=== PATIENT | female | born 1970 | race Caucasian/White ===

== ENCOUNTER 2020-01-03 11:44 | Emergency (ER) | payer MEDICAID, OTHER ==
[~2020-01-03] VITALS: Ht 160 cm; Wt 93.4 kg
[2020-01-03] MEDS ORDERED: KETOROLAC TROMETHAMINE 15 MG/ML VIAL ONE (12:09)
--- NOTE | 2020-01-03 12:09 | NUR ---
PT REC'D TO ER VIA EMS C/O FELL WHILE WALKING IN THE STREET PAIN RT LEG HANDS SLIGHT SBRASIONS CLEANED IV STARTED 20G LABS SENT TO LAB . MEDS GIVEN PER MD ORDER
[2020-01-03 12:19] LABS: BASOPHILS % (AUTO) 0.7 % (0.0-2.0); HEMATOCRIT 41 % (33-45); HEMOGLOBIN 13.6 g/dL (11.5-14.8); LYMPHOCYTES # (AUTO) 1.9 /CMM (0.8-4.8); LYMPHOCYTES % (AUTO) 29.2 % (20.0-44.0); MEAN CORPUSCULAR HGB CONC 33 g/dl (31.0-36.0); MEAN CORPUSCULAR VOLUME 87 fL (82-100); MONOCYTES # (AUTO) 0.4 /CMM (0.1-1.30); MONOCYTES % (AUTO) 5.9 % (2.0-12.0); NEUTROPHILS # (AUTO) 4.1 /CMM (1.8-8.9); NEUTROPHILS % (AUTO) 62.2 % (43.0-81.0); PLATELET COUNT (AUTO) 177 /CMM (150-450); RED BLOOD CELL COUNT(AUTO) 4.68 MIL/uL (4.0-5.2); WHITE BLOOD COUNT (AUTO) 6.5 K/uL (4.3-11.0)
[2020-01-03 12:26] LABS: CALCIUM, SERUM 8.9 mg/dL (8.5-10.1); CARBON DIOXIDE 28 mmol/L (21-32); CHLORIDE 105 mmol/L (98-107); CREATININE 0.7 mg/dL (0.6-1.3); GLUCOSE 91 mg/dL (74-106); POTASSIUM 3.8 mmol/L (3.5-5.1); SODIUM SERUM 140 mmol/L (136-145); UREA NITROGEN, BLOOD 16 mg/dL (7-18)
[2020-01-03] MEDS ORDERED: KETOROLAC TROMETHAMINE INJ 30 MG/ML VIAL IV ONE (12:30)
[2020-01-03] MEDS ORDERED: IV NS 0.9% 1,000 ML BAG IV ONE (12:30)
[2020-01-03 12:32] LABS: ALANINE AMINOTRANSFERASE 45 U/L (12-78); ALBUMIN 3.2 g/dL (3.4-5.0); ALKALINE PHOSPHATASE 65 U/L (46-116); ASPARTATE AMINOTRANSFERASE 25 U/L (15-37); BILIRUBIN,DIRECT 0.1 mg/dL (0.0-0.2); BILIRUBIN,TOTAL 0.3 mg/dL (0.2-1.0); TOTAL PROTEIN, SERUM 6.8 g/dL (6.4-8.2)
--- NOTE | 2020-01-03 13:04 | NUR ---
Patient discharged to home in stable condition. Written and verbal after care instructions given. Patient verbalizes understanding of instruction.
[2020-01-03 13:05] VITALS: BP 118/72
== END 2020-01-03 13:05 | disposition home or self-care (01) ==
LOC: ER 11:49
DX: S60.512A Abrasion of left hand, initial encounter (principal); S60.511A Abrasion of right hand, initial encounter; M79.604 Pain in right leg; Z90.89 Acquired absence of other organs; W01.0XXA Fall on same level from slipping, tripping and stumbling without subsequent striking against object, initial encounter; Y93.89 Activity, other specified; Y92.89 Other specified places as the place of occurrence of the external cause; Y99.8 Other external cause status
CPT/HCPCS: 36415; 73502; 80048; 80076; 84484; 85025; 93005; 96374; 99285; J1885; J7030

== ENCOUNTER 2020-02-19 19:00 | Emergency (ER) | payer OTHER ==
[~2020-02-19] VITALS: Ht 165.1 cm; Wt 86.2 kg
[2020-02-19 19:11] VITALS: BP 135/79
--- NOTE | 2020-02-19 20:09 | NUR ---
COVID TEST SENT TO LAB
--- NOTE | 2020-02-19 20:12 | NUR ---
Patient discharged to home in stable condition. Written and verbal after care instructions given. Patient verbalizes understanding of instruction. Pt ambulatory with a steady gait
== END 2020-02-19 20:13 | disposition home or self-care (01) ==
LOC: ER 19:04
DX: U07.1 COVID-19 (principal); R05 Cough; M79.10 Myalgia, unspecified site
CPT/HCPCS: 99283; U0003

== ENCOUNTER 2020-02-25 23:07 | Emergency (ER) | payer OTHER ==
[~2020-02-25] VITALS: Ht 165.1 cm; Wt 93.0 kg
--- NOTE | 2020-02-25 23:37 | NUR ---
BIBS TO ER BED 5. AAOX4. NOT IN RESP DISTRESS BUT TACHYPNEIC. O2 SAT 96 ON RA. AMBULATORY. CAME IN FOR FEVER X 1 WEEK AND COUGH X 2 DAYS. PT WAS HERE ON 02/19/20 AND WAS TESTED FOR COVID WHICH TURNED OUT POSITIVE ON 02/23/20. ORAL TEMP NOTED @ 99.5. PT REPORTS TAKING TYLENOL BUT CANT REMEMBER THE TIME. PT IS PLACED ON ISOLATION. WAS AT BEDSIDE FOR EVAL. ORDERS RECEIVED NOTED AND CARRIED OUT. IV LINE OBTAINED ON THE R AC 18G. BLOOD DRAWN AND SENT TO LAB.
[2020-02-25] MEDS ORDERED: IBUPROFEN 400 MG TABLET ONE ×2 (23:39→23:41)
[2020-02-25 23:44] LABS: APPEARANCE,URINE Clear (CLEAR); BILIRUBIN,URINE Negative (NEGATIVE); BLOOD, URINE Negative Ery/uL (NEGATIVE); COLOR,URINE Yellow (YELLOW); KETONES,URINE Negative (NEGATIVE); LEUKOCYTE ESTERASE ,URINE Negative (NEGATIVE); NITRITE, URINE Negative (NEGATIVE); PROTEIN,URINE Negative (NEGATIVE); UGLUCOSE Negative (NEGATIVE); UROBILINOGEN,URINE 0.2 EU/dL (0.2)
[2020-02-25 23:47] LABS: BASOPHILS % (AUTO) 0.1 % (0.0-2.0); EOSINOPHILS % (AUTO) 0.1 % (0.0-6.0); HEMATOCRIT 43 % (33-45); HEMOGLOBIN 14.4 g/dL (11.5-14.8); LYMPHOCYTES # (AUTO) 1.2 /CMM (0.8-4.8); LYMPHOCYTES % (AUTO) 25.5 % (20.0-44.0); MEAN CORPUSCULAR HGB CONC 33 g/dl (31.0-36.0); MEAN CORPUSCULAR VOLUME 87 fL (82-100); MONOCYTES # (AUTO) 0.3 /CMM (0.1-1.30); MONOCYTES % (AUTO) 7.5 % (2.0-12.0); NEUTROPHILS % (AUTO) 66.8 % (43.0-81.0); PLATELET COUNT (AUTO) 159 /CMM (150-450); RED BLOOD CELL COUNT(AUTO) 4.97 MIL/uL (4.0-5.2); WHITE BLOOD COUNT (AUTO) 4.5 K/uL (4.3-11.0)
[2020-02-26] LABS: CALCIUM, SERUM 8.5 mg/dL (8.5-10.1); CREATININE 0.7 mg/dL (0.6-1.3); POTASSIUM 3.8 mmol/L (3.5-5.1)
[2020-02-26] MEDS ORDERED: IBUPROFEN 400 MG TABLET PO ONE
[2020-02-26] MEDS ORDERED: IV NS 0.9% 1,000 ML BAG IV ONE
[2020-02-26 00:13] LABS: ALBUMIN 3.5 g/dL (3.4-5.0); BILIRUBIN,TOTAL 0.3 mg/dL (0.2-1.0); TOTAL PROTEIN, SERUM 7.8 g/dL (6.4-8.2)
[2020-02-26] MEDS ORDERED: AZITHROMYCIN 250 MG TABLET ONE (00:59)
[2020-02-26] MEDS ORDERED: AZITHROMYCIN 250 MG TABLET PO ONE (01:00)
--- NOTE | 2020-02-26 01:17 | NUR ---
Patient discharged to home in stable condition. Written and verbal after care instructions given. Patient verbalizes understanding of instruction and RX. IV removed. Catheter intact and site benign. Pressure and 4x4 applied to site. No bleeding noted. Picked up by son. MANUEL.
[2020-02-26 01:29] VITALS: BP 112/72
== END 2020-02-26 01:30 | disposition home or self-care (01) ==
LOC: ER 23:07
DX: U07.1 COVID-19 (principal); J12.89 Other viral pneumonia; R94.5 Abnormal results of liver function studies
CPT/HCPCS: 36415; 71045-TC; 80053-TC; 81000-TC; 83605-TC; 85025-TC

== ENCOUNTER 2020-05-04 20:29 | Emergency (ER) | payer OTHER ==
[~2020-05-04] VITALS: Ht 165.1 cm; Wt 93.0 kg
[2020-05-04 20:30] VITALS: BP 127/68
== END 2020-05-04 21:16 | disposition home or self-care (01) ==
LOC: ER 20:32
DX: B02.9 Zoster without complications (principal); Z90.89 Acquired absence of other organs

== ENCOUNTER 2020-07-17 20:12 | Emergency (ER) | payer OTHER ==
[~2020-07-17] VITALS: Ht 165.1 cm; Wt 88.9 kg
--- NOTE | 2020-07-17 20:31 | NUR ---
PATIENT CAME TO ER BED 9 C/O MID EPIGASTRIC PAIN SINCE 1x HOURS AGO. PATIENT IS ABLE TO HAVE A BM 1x HOUR AGO WITH NO ISSUES. PATIENT CURRENTLY HAS A 7/10 DULL PAIL TO THE MIDEPIGASTRIC REGION OF HER ABDOMEN. PAITENT STATES THAT SHE HAS PAIN ESPIECIALLY WHEN SHE EATS. CURRENTLY NOT NAUSEOUS. DENIES VOMITING. PATIENT IS AAOX4. NO SOB. BREATHING EVENLY AND UNLABORED ON ROOM AIR. CONNECTED TO THE MONITOR.
[2020-07-17] MEDS ORDERED: MAG HYDROX/AL HYDROX/SIMETH 30 ML UDC ONE (20:42)
[2020-07-17] MEDS ORDERED: LIDOCAINE VISCOUS 2% UD 15 ML UDC ONE (20:42)
[2020-07-17] MEDS ORDERED: FAMOTIDINE/PF INJ 20 MG/2 ML VIAL IV ONE ×2 (20:42→21:00)
[2020-07-17 20:45] LABS: BASOPHILS % (AUTO) 0.6 % (0.0-2.0); EOSINOPHILS % (AUTO) 2.4 % (0.0-6.0); HEMATOCRIT 43 % (33-45); HEMOGLOBIN 14.5 g/dL (11.5-14.8); LYMPHOCYTES # (AUTO) 2.3 /CMM (0.8-4.8); LYMPHOCYTES % (AUTO) 30.1 % (20.0-44.0); MEAN CORPUSCULAR HGB CONC 33 g/dl (31.0-36.0); MEAN CORPUSCULAR VOLUME 87 fL (82-100); MONOCYTES # (AUTO) 0.5 /CMM (0.1-1.30); MONOCYTES % (AUTO) 6.3 % (2.0-12.0); NEUTROPHILS # (AUTO) 4.7 /CMM (1.8-8.9); NEUTROPHILS % (AUTO) 60.6 % (43.0-81.0); PLATELET COUNT (AUTO) 207 /CMM (150-450); RED BLOOD CELL COUNT(AUTO) 4.99 MIL/uL (4.0-5.2); WHITE BLOOD COUNT (AUTO) 7.8 K/uL (4.3-11.0)
[2020-07-17 20:54] LABS: CALCIUM, SERUM 9.1 mg/dL (8.5-10.1); CREATININE 0.8 mg/dL (0.6-1.3); POTASSIUM 3.8 mmol/L (3.5-5.1)
[2020-07-17 20:59] LABS: ALBUMIN 3.4 g/dL (3.4-5.0); BILIRUBIN,DIRECT 0.1 mg/dL (0.0-0.2); BILIRUBIN,TOTAL 0.3 mg/dL (0.2-1.0); TOTAL PROTEIN, SERUM 7.3 g/dL (6.4-8.2)
[2020-07-17] MEDS ORDERED: IV NS 0.9% 500 ML BAG IV ONE (21:00)
[2020-07-17] MEDS ORDERED: LIDOCAINE VISCOUS 2% UD 15 ML UDC MM ONE (21:00)
[2020-07-17] MEDS ORDERED: MAG HYDROX/AL HYDROX/SIMETH 30 ML UDC PO ONE (21:00)
[2020-07-17 21:03] LABS: APPEARANCE,URINE CLEAR (CLEAR); BILIRUBIN,URINE NEGATIVE (NEGATIVE); BLOOD, URINE TRACE-INTA Ery/uL (NEGATIVE); COLOR,URINE YELLOW (YELLOW); KETONES,URINE NEGATIVE (NEGATIVE); LEUKOCYTE ESTERASE ,URINE NEGATIVE (NEGATIVE); NITRITE, URINE NEGATIVE (NEGATIVE); PROTEIN,URINE NEGATIVE (NEGATIVE); UGLUCOSE NEGATIVE (NEGATIVE); UROBILINOGEN,URINE 0.2 EU/dL (0.2)
[2020-07-17 21:09] LABS: BACTERIA,URINE None seen /HPF (None Seen); SQUAMOUS EPITHELIAL CELL,UR 0-2 /HPF (None Seen); WBC,URINE 0-2 /HPF (0-3)
--- NOTE | 2020-07-17 22:16 | NUR ---
Patient discharged to home in stable condition. Written and verbal after care instructions given. Patient verbalizes understanding of instruction.
--- NOTE | 2020-07-17 22:16 | NUR ---
IV removed. Catheter intact and site benign. Pressure and 4x4 applied to site. No bleeding noted.
[2020-07-17 22:17] VITALS: BP 118/72
== END 2020-07-17 22:17 | disposition home or self-care (01) ==
LOC: ER 20:12
DX: R10.13 Epigastric pain (principal); Z90.89 Acquired absence of other organs
CPT/HCPCS: 36415; 76705; 80048; 80076; 81001; 83690; 85025; 96374; 99284; J3490; J7040; 81000-TC

== ENCOUNTER 2020-08-07 21:31 | Emergency (ER) | payer OTHER ==
[~2020-08-07] VITALS: Ht 165.1 cm; Wt 88.9 kg
[2020-08-07] MEDS ORDERED: IV NS 0.9% 1,000 ML BAG IV ONE (22:00)
[2020-08-07] MEDS ORDERED: ONDANSETRON HCL/PF 4 MG/2 ML VIAL IVP ONE (22:00)
[2020-08-07] MEDS ORDERED: MORPHINE SULFATE INJ 2 MG/ML DISP.SYRIN IV ONE (22:00)
[2020-08-07] MEDS ORDERED: LIDOCAINE VISCOUS 2% UD 15 ML UDC MM ONE (22:00)
[2020-08-07] MEDS ORDERED: MAG HYDROX/AL HYDROX/SIMETH 30 ML UDC PO ONE (22:00)
[2020-08-07] MEDS ORDERED: MAG HYDROX/AL HYDROX/SIMETH 30 ML UDC ONE (22:17)
[2020-08-07] MEDS ORDERED: LIDOCAINE VISCOUS 2% UD 15 ML UDC ONE (22:17)
[2020-08-07 22:20] LABS: BASOPHILS # (AUTO) 0.1 /CMM (0.0-0.2); BASOPHILS % (AUTO) 0.7 % (0.0-2.0); EOSINOPHILS % (AUTO) 1.3 % (0.0-6.0); HEMATOCRIT 41 % (33-45); HEMOGLOBIN 13.6 g/dL (11.5-14.8); LYMPHOCYTES # (AUTO) 2.5 /CMM (0.8-4.8); LYMPHOCYTES % (AUTO) 27.6 % (20.0-44.0); MEAN CORPUSCULAR HGB CONC 33 g/dl (31.0-36.0); MEAN CORPUSCULAR VOLUME 87 fL (82-100); MONOCYTES # (AUTO) 0.8 /CMM (0.1-1.30); MONOCYTES % (AUTO) 8.6 % (2.0-12.0); NEUTROPHILS # (AUTO) 5.7 /CMM (1.8-8.9); NEUTROPHILS % (AUTO) 61.8 % (43.0-81.0); PLATELET COUNT (AUTO) 207 /CMM (150-450); RED BLOOD CELL COUNT(AUTO) 4.72 MIL/uL (4.0-5.2); WHITE BLOOD COUNT (AUTO) 9.2 K/uL (4.3-11.0)
--- NOTE | 2020-08-07 22:21 | NUR ---
BIBS FOR C/O R SIDED ABD PAIN X 1 HR, -N/V/D. PT AAOX4, VSS. RR EVEN & UNALBORED. DENIES CP, SOB, DIZZINESS @ THIS TIME. PT SEEN & EVAL'D BY DASIA VALLES. MEDICATED ORDERED, PT MASON WELL.
[2020-08-07 22:29] LABS: CALCIUM, SERUM 8.6 mg/dL (8.5-10.1); CREATININE 0.8 mg/dL (0.6-1.3); POTASSIUM 3.9 mmol/L (3.5-5.1)
[2020-08-07 22:40] LABS: ALBUMIN 3.2 g/dL (3.4-5.0); BILIRUBIN,TOTAL 0.2 mg/dL (0.2-1.0)
[2020-08-07] MEDS ORDERED: IOHEXOL-300 100 ML VIAL IV ONE (22:42)
[2020-08-07] MEDS ORDERED: IV NS 0.9% 250 ML IV ONE (22:42)
--- NOTE | 2020-08-08 01:00 | NUR ---
PT IS MEDICALLY STABLE FOR D/C PER MD. IV removed. Catheter intact and site benign. Pressure and 4x4 applied to site. No bleeding noted.Rx and Patient discharged to home in stable condition. Written and verbal after care instructions given. Patient verbalizes understanding of instruction.
[2020-08-08 01:02] VITALS: BP 118/76
== END 2020-08-08 01:02 | disposition home or self-care (01) ==
LOC: ER 21:34
DX: R10.13 Epigastric pain (principal); R10.11 Right upper quadrant pain; Z90.89 Acquired absence of other organs
CPT/HCPCS: 36415; 74177; 80048; 80076; 83690; 85025; 99285; J7050; Q9967

== ENCOUNTER 2021-03-01 22:17 | Emergency (ER) | payer OTHER ==
[~2021-03-01] VITALS: Ht 165.1 cm; Wt 82.7 kg
[2021-03-01 22:37] VITALS: BP 122/73
--- NOTE | 2021-03-01 22:51 | NUR ---
RAD AT BED SIDE
[2021-03-01] MEDS ORDERED: IBUPROFEN 400 MG TABLET ONE (22:52)
[2021-03-01] MEDS ORDERED: IBUPROFEN 400 MG TABLET PO ONE (23:00)
== END 2021-03-01 23:53 | disposition home or self-care (01) ==
LOC: ER 22:17
DX: M76.892 Other specified enthesopathies of left lower limb, excluding foot (principal); Z90.89 Acquired absence of other organs
CPT/HCPCS: 73630-TC

== ENCOUNTER 2021-07-13 00:36 | Emergency (ER) | payer OTHER ==
[~2021-07-13] VITALS: Ht 165.1 cm; Wt 85.7 kg
[2021-07-13] MEDS ORDERED: IBUPROFEN 400 MG TABLET ONE (00:50)
--- NOTE | 2021-07-13 00:52 | NUR ---
lab at bedside
--- NOTE | 2021-07-13 00:52 | NUR ---
emt at bedside for ekg
--- NOTE | 2021-07-13 00:53 | NUR ---
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 Pt aaox4 breathing evenly and unlabored. Upon assessment pt is lethargic and admits to taking melatonin [employer]NEY. MD at bedside. Pt attached to monitor and pox. Pt given blanket and call light within reach. Will continue to monitor.
[2021-07-13] MEDS: IBUPROFEN 400 MG TABLET PO ONE (00:55)
[2021-07-13 01:05] LABS: BASOPHILS # (AUTO) 0.1 K/uL (0.0-0.2); BASOPHILS % (AUTO) 0.7 % (0.0-2.0); EOSINOPHILS % (AUTO) 1.5 % (0.0-6.0); HEMATOCRIT 42 % (33-45); HEMOGLOBIN 13.9 g/dL (11.5-14.8); LYMPHOCYTES # (AUTO) 2.7 K/uL (0.8-4.8); MEAN CORPUSCULAR HGB CONC 33 g/dl (31.0-36.0); MEAN CORPUSCULAR VOLUME 88 fL (82-100); MONOCYTES # (AUTO) 0.5 K/uL (0.1-1.30); MONOCYTES % (AUTO) 6.4 % (2.0-12.0); NEUTROPHILS # (AUTO) 4.8 K/uL (1.8-8.9); NEUTROPHILS % (AUTO) 58.4 % (43.0-81.0); PLATELET COUNT (AUTO) 204 K/uL (150-450); RED BLOOD CELL COUNT(AUTO) 4.78 MIL/uL (4.0-5.2); WHITE BLOOD COUNT (AUTO) 8.2 K/uL (4.3-11.0)
[2021-07-13 01:36] LABS: ALANINE AMINOTRANSFERASE 24 U/L (12-78); ALBUMIN 3.4 g/dL (3.4-5.0); ALKALINE PHOSPHATASE 66 U/L (46-116); ASPARTATE AMINOTRANSFERASE 16 U/L (15-37); BILIRUBIN,DIRECT 0.1 mg/dL (0.0-0.2); BILIRUBIN,TOTAL 0.2 mg/dL (0.2-1.0); CALCIUM, SERUM 8.5 mg/dL (8.5-10.1); CARBON DIOXIDE 28 mmol/L (21-32); CHLORIDE 105 mmol/L (98-107); CREATININE 0.8 mg/dL (0.6-1.3); GLUCOSE 99 mg/dL (74-106); POTASSIUM 3.6 mmol/L (3.5-5.1); SODIUM SERUM 141 mmol/L (136-145); TOTAL PROTEIN, SERUM 7.2 g/dL (6.4-8.2); UREA NITROGEN, BLOOD 25 mg/dL (7-18)
--- NOTE | 2021-07-13 03:55 | NUR ---
lab at bedside
--- NOTE | 2021-07-13 04:34 | NUR ---
Patient discharged to home in stable condition. Written and verbal after care instructions given. Patient verbalizes understanding of instruction. Pt ambulatory with a steady gait
--- NOTE | 2021-07-13 04:40 | NUR ---
Patient picked up by son.
[2021-07-13 04:45] VITALS: BP 116/74
== END 2021-07-13 04:43 | disposition home or self-care (01) ==
LOC: ER 00:43
DX: R51.9 Headache, unspecified (principal); R07.89 Other chest pain; Z90.89 Acquired absence of other organs
CPT/HCPCS: 36415; 71045-TC; 80048-TC; 80076-TC; 84484-TC; 85025-TC; 85378-TC

== ENCOUNTER 2021-10-29 17:58 | Emergency (ER) | payer OTHER ==
[~2021-10-29] VITALS: Ht 167.6 cm; Wt 81.6 kg
--- NOTE | 2021-10-29 18:21 | NUR ---
BIB SON C/O L EYE PAIN AND REDNESS "POSSIBLE BLOOD CLOT IN MY EYE" X TODAY. DENIES BLURRY VISION. PT SAYS SHE WAS IN A [place] 2 DAYS AGO. AAOX4, BREATHING EVEN AND UNLABORED.
--- NOTE | 2021-10-29 18:38 | NUR ---
Patient discharged to home in stable condition. Written and verbal after care instructions given. Patient verbalizes understanding of instruction.
[2021-10-29 18:41] VITALS: BP 102/73
== END 2021-10-29 18:42 | disposition home or self-care (01) ==
LOC: ER 18:02
DX: H11.32 Conjunctival hemorrhage, left eye (principal); Z90.89 Acquired absence of other organs

== ENCOUNTER 2021-12-31 16:54 | Emergency (ER) | payer OTHER ==
[~2021-12-31] VITALS: Ht 165.1 cm; Wt 83.9 kg
--- NOTE | 2021-12-31 17:20 | NUR ---
CAME IN FOR NECK PAIN x 7DAYS AND LOWER BACK PAIN ON&OFF x 7MOS WORSE TODAY. PLACED COMFORTABLY IN BED. VITALS CHECKED.
--- NOTE | 2021-12-31 18:45 | NUR ---
XRAY DONE AT BEDSIDE
[2021-12-31 19:16] LABS: CALCIUM, SERUM 9.4 mg/dL (8.5-10.1); CREATININE 0.8 mg/dL (0.6-1.3); POTASSIUM 3.6 mmol/L (3.5-5.1)
[2021-12-31 19:33] LABS: THYROID STIMULATING HORMONE 1.076 uIU/mL (0.358-3.74)
[2021-12-31] MEDS ORDERED: IBUPROFEN 600 MG TABLET PO ONE (20:00)
[2021-12-31] MEDS ORDERED: IBUPROFEN 600 MG TABLET ONE (20:01)
[2021-12-31 20:05] LABS: BASOPHILS # (AUTO) 0.1 K/uL (0.0-0.2); BASOPHILS % (AUTO) 0.7 % (0.0-2.0); EOSINOPHILS % (AUTO) 3.9 % (0.0-6.0); HEMATOCRIT 43 % (33-45); HEMOGLOBIN 14.2 g/dL (11.5-14.8); LYMPHOCYTES # (AUTO) 2.1 K/uL (0.8-4.8); LYMPHOCYTES % (AUTO) 26.7 % (20.0-44.0); MEAN CORPUSCULAR HGB CONC 33 g/dl (31.0-36.0); MEAN CORPUSCULAR VOLUME 88 fL (82-100); MONOCYTES # (AUTO) 0.4 K/uL (0.1-1.30); NEUTROPHILS % (AUTO) 63.7 % (43.0-81.0); PLATELET COUNT (AUTO) 193 K/uL (150-450); RED BLOOD CELL COUNT(AUTO) 4.89 MIL/uL (4.0-5.2); WHITE BLOOD COUNT (AUTO) 7.9 K/uL (4.3-11.0)
[2021-12-31 23:43] VITALS: BP 110/60
--- NOTE | 2021-12-31 23:43 | NUR ---
Patient discharged to home in stable condition. Written and verbal after care instructions given. Patient verbalizes understanding of instruction.
== END 2021-12-31 23:43 | disposition home or self-care (01) ==
LOC: ER 16:57
DX: M54.2 Cervicalgia (principal); E04.1 Nontoxic single thyroid nodule; Z90.89 Acquired absence of other organs
CPT/HCPCS: 36415; 70360-TC; 76536-TC; 80048-TC; 84443-TC; 85025-TC

== ENCOUNTER 2022-04-10 10:43 | Emergency (ER) | payer OTHER ==
[~2022-04-10] VITALS: Ht 165.1 cm; Wt 85.3 kg
--- NOTE | 2022-04-10 10:55 | NUR ---
CHRONIC LOWER BACK PAIN X 7 MONTHS. WORST AT NIGHT TIME. DENIES ANY RECENT INURY. PT IS A&OX4. ABLE TO AMBULATE ON HIS OWN. AWAITING MD PEREZ.
--- NOTE | 2022-04-10 10:57 | NUR ---
MD/PA AT BEDSIDE W/ PT FOR EVAL
[2022-04-10] MEDS ORDERED: CAPS1ADH5 TP (11:09)
[2022-04-10] MEDS ORDERED: IBUP-1953 PO (11:09)
[2022-04-10 11:15] VITALS: BP 111/71
--- NOTE | 2022-04-10 11:15 | NUR ---
Patient discharged to home in stable condition. Written and verbal after care instructions given. Patient verbalizes understanding of instruction.
== END 2022-04-10 11:16 | disposition home or self-care (01) ==
LOC: ER 10:45
DX: M54.50 Low back pain, unspecified (principal); Z90.89 Acquired absence of other organs; Z79.899 Other long term (current) drug therapy

== ENCOUNTER 2022-05-22 08:40 | Emergency (ER) | payer OTHER ==
[~2022-05-22] VITALS: Ht 167.6 cm; Wt 80.7 kg
[~2022-05-22 08:40] MED LIST: CAPS1ADH5 TP; IBUP-1953 PO
[2022-05-22] MEDS ORDERED: KETOROLAC TROMETHAMINE INJ 30 MG/ML VIAL ONE (09:22)
[2022-05-22] MEDS: KETOROLAC TROMETHAMINE INJ 30 MG/ML VIAL IV ONE (09:25)
[2022-05-22] MEDS: IV NS 0.9% 1,000 ML IV ONE (09:25)
--- NOTE | 2022-05-22 09:30 | NUR ---
Patient came in to the er c/o left flank pain x 2 days. On room air, breaathing evenly and unlabored. Kept comfortable, will continue to monitor accordingly.
[2022-05-22 09:42] LABS: BASOPHILS # (AUTO) 0.1 K/uL (0.0-0.2); BASOPHILS % (AUTO) 0.8 % (0.0-2.0); EOSINOPHILS % (AUTO) 2.9 % (0.0-6.0); HEMATOCRIT 44 % (33-45); HEMOGLOBIN 14.6 g/dL (11.5-14.8); LYMPHOCYTES # (AUTO) 2.2 K/uL (0.8-4.8); LYMPHOCYTES % (AUTO) 32.1 % (20.0-44.0); MEAN CORPUSCULAR HGB CONC 33 g/dl (31.0-36.0); MEAN CORPUSCULAR VOLUME 87 fL (82-100); MONOCYTES # (AUTO) 0.5 K/uL (0.1-1.30); MONOCYTES % (AUTO) 6.8 % (2.0-12.0); NEUTROPHILS # (AUTO) 3.9 K/uL (1.8-8.9); NEUTROPHILS % (AUTO) 57.4 % (43.0-81.0); PLATELET COUNT (AUTO) 198 K/uL (150-450); RED BLOOD CELL COUNT(AUTO) 5.06 MIL/uL (4.0-5.2); WHITE BLOOD COUNT (AUTO) 6.7 K/uL (4.3-11.0)
--- NOTE | 2022-05-22 09:48 | NUR ---
patient came back from ct.
[2022-05-22 10:03] LABS: BILIRUBIN,URINE NEGATIVE (NEGATIVE); COLOR,URINE YELLOW (YELLOW); LEUKOCYTE ESTERASE ,URINE NEGATIVE (NEGATIVE); NITRITE, URINE NEGATIVE (NEGATIVE); PH,URINE 5.5 (5.0-8.0); PROTEIN,URINE NEGATIVE (NEGATIVE); UGLUCOSE NEGATIVE (NEGATIVE); UROBILINOGEN,URINE 0.2 EU/dL (0.2)
[2022-05-22 10:04] LABS: CALCIUM, SERUM 8.8 mg/dL (8.5-10.1); CREATININE 0.7 mg/dL (0.6-1.3)
[2022-05-22 10:13] LABS: RBC,URINE 0-2 /HPF (0-2)
[2022-05-22 10:14] LABS: BACTERIA,URINE Few /HPF (None Seen); SQUAMOUS EPITHELIAL CELL,UR 0-2 /HPF (None Seen); WBC,URINE NONE SEEN /HPF (0-3)
[2022-05-22] MEDS ORDERED: IBUP-1957 PO (10:42)
[2022-05-22] MEDS ORDERED: CIPR500T5 PO (10:42)
[2022-05-22] MEDS ORDERED: METR500T PO (10:42)
[2022-05-22 10:51] VITALS: BP 128/77
--- NOTE | 2022-05-22 10:51 | NUR ---
Patient discharged to home in stable condition. Written and verbal after care instructions given. Patient verbalizes understanding of instruction.IV removed. Catheter intact and site benign. Pressure and 4x4 applied to site. No bleeding noted.
== END 2022-05-22 10:51 | disposition home or self-care (01) ==
LOC: ER 08:44
DX: K52.9 Noninfective gastroenteritis and colitis, unspecified (principal)
CPT/HCPCS: 99284; 74176; 96374; 96361; 85025; 80048; 81001; 36415; J1885; J7030

== ENCOUNTER 2023-02-03 10:55 | Emergency (ER) | payer OTHER ==
[~2023-02-03] VITALS: Ht 162.6 cm; Wt 83.5 kg
[~2023-02-03 10:55] MED LIST changes: +CIPR500T5 PO; +IBUP-1957 PO; +METR500T PO
[2023-02-03] MEDS ORDERED: FLUORESCEIN SODIUM OPHTH 1 EA STRIP OP ONE (11:30)
[2023-02-03] MEDS ORDERED: TETRACAINE HCL 2% OPHTHALIC 30 ML BOTTLE TP ONE (11:30)
[2023-02-03] MEDS ORDERED: FLUORESCEIN SODIUM OPHTH 1 EA STRIP ONE (12:09)
[2023-02-03] MEDS ORDERED: LEVO5DRO21 RIGHTEYE (12:20)
[2023-02-03] MEDS ORDERED: ERYT3.5O9 RIGHTEYE (12:20)
[2023-02-03 12:27] VITALS: BP 115/81
== END 2023-02-03 12:28 | disposition home or self-care (01) ==
LOC: ER 10:57
DX: H18.821 Corneal disorder due to contact lens, right eye (principal); Z90.89 Acquired absence of other organs; Z79.899 Other long term (current) drug therapy

== ENCOUNTER 2023-07-07 22:07 | Emergency (ER) | payer OTHER ==
[~2023-07-07] VITALS: Ht 162.6 cm; Wt 81.6 kg
[~2023-07-07 22:07] MED LIST changes: +ERYT3.5O9 RIGHTEYE; +LEVO5DRO21 RIGHTEYE
[2023-07-07] MEDS ORDERED: IV NS 0.9% 1,000 ML BAG IV ONE (23:30)
[2023-07-07] MEDS ORDERED: FAMOTIDINE/PF INJ 20 MG/2 ML VIAL IV ONE ×2 (23:30→23:39)
[2023-07-07] MEDS ORDERED: KETOROLAC TROMETHAMINE INJ 30 MG/ML VIAL IV ONE (23:30)
[2023-07-07] MEDS ORDERED: MAG HYDROX/AL HYDROX/SIMETH 30 ML UDC PO ONE (23:30)
[2023-07-07] MEDS ORDERED: ONDANSETRON HCL/PF 4 MG/2 ML VIAL IVP ONE (23:30)
[2023-07-07] MEDS ORDERED: ONDANSETRON HCL/PF 4 MG/2 ML VIAL ONE (23:39)
[2023-07-07] MEDS ORDERED: MAG HYDROX/AL HYDROX/SIMETH 30 ML UDC ONE (23:39)
[2023-07-07] MEDS ORDERED: KETOROLAC TROMETHAMINE 15 MG/ML VIAL ONE (23:39)
[2023-07-07 23:44] LABS: BASOPHILS % (AUTO) 0.4 % (0.0-2.0); EOSINOPHILS # (AUTO) 0.2 K/uL (0.0-0.7); EOSINOPHILS % (AUTO) 2.5 % (0.0-6.0); HEMATOCRIT 41 % (33-45); HEMOGLOBIN 13.7 g/dL (11.5-14.8); LYMPHOCYTES # (AUTO) 1.3 K/uL (0.8-4.8); MEAN CORPUSCULAR HEMOGLOBIN 29 PG (26.0-33.0); MEAN CORPUSCULAR HGB CONC 34 g/dl (31.0-36.0); MEAN CORPUSCULAR VOLUME 87 fL (82-100); MONOCYTES # (AUTO) 0.5 K/uL (0.1-1.30); MONOCYTES % (AUTO) 7.9 % (2.0-12.0); NEUTROPHILS # (AUTO) 4.1 K/uL (1.8-8.9); NEUTROPHILS % (AUTO) 67.2 % (43.0-81.0); PLATELET COUNT (AUTO) 183 K/uL (150-450); RED BLOOD CELL COUNT(AUTO) 4.71 MIL/uL (4.0-5.2); RED CELL DISTRIBUTION WIDTH 14.4 % (11.5-15.0); WHITE BLOOD COUNT (AUTO) 6.1 K/uL (4.3-11.0)
[2023-07-08] LABS: ALBUMIN 3.3 g/dL (3.4-5.0); BILIRUBIN,DIRECT 0.1 mg/dL (0.0-0.2); BILIRUBIN,TOTAL 0.3 mg/dL (0.2-1.0); CALCIUM, SERUM 8.7 mg/dL (8.5-10.1); CREATININE 0.6 mg/dL (0.6-1.3); POTASSIUM 3.4 mmol/L (3.5-5.1)
[2023-07-08] MEDS ORDERED: IOHEXOL-350 100 ML VIAL IV ONE (00:12)
[2023-07-08] MEDS ORDERED: CT SWABBABLE VALVE TRANS SET 1 EA INFUS.SET MC ONE (00:13)
[2023-07-08] MEDS ORDERED: IV NS 0.9% 250 ML IV ONE (00:13)
[2023-07-08] MEDS ORDERED: FAMO20TA8 PO (00:34)
[2023-07-08] MEDS ORDERED: ONDA4TAB5 PO (00:34)
[2023-07-08] MEDS ORDERED: TYL2T PO (00:34)
[2023-07-08 00:42] VITALS: BP 117/65; TEMP 98; O2SAT 98
== END 2023-07-08 00:42 | disposition home or self-care (01) ==
LOC: ER 22:10
DX: K29.70 Gastritis, unspecified, without bleeding (principal); R10.13 Epigastric pain; R11.2 Nausea with vomiting, unspecified; Z90.89 Acquired absence of other organs
CPT/HCPCS: 99284; 96374; 96375; 96361; 85025; 80048; 83690; 80076; 36415; 84484; J3490; J2405; J7030; J1885; J7050; Q9967

== ENCOUNTER 2023-12-15 19:49 | Emergency (ER) | payer OTHER ==
[~2023-12-15] VITALS: Ht 165.1 cm; Wt 84.4 kg
[~2023-12-15 19:49] MED LIST changes: +FAMO20TA8 PO; +ONDA4TAB5 PO; +TYL2T PO
[2023-12-15] MEDS ORDERED: oxyCODONE/APAP (5/325 MG) 1 UDTAB TABLET ONE (20:49)
[2023-12-15] MEDS: oxyCODONE/APAP (5/325 MG) 1 UDTAB TABLET PO ONE (20:50)
[2023-12-15 22:20] VITALS: BP 139/70; TEMP 98.1; O2SAT 100
== END 2023-12-15 22:20 | disposition home or self-care (01) ==
LOC: ER 19:53
DX: M25.521 Pain in right elbow (principal); Z79.899 Other long term (current) drug therapy; Z90.49 Acquired absence of other specified parts of digestive tract
CPT/HCPCS: 73080-TC